=== PATIENT | female | born 1965 | race Caucasian/White ===

== ENCOUNTER 2017-12-20 08:51 | Day surgery (SDC) | payer OTHER ==
[2017-12-16 12:39] VITALS: BMI 22.1
[2017-12-20 09:28] VITALS: TEMP 98
[2017-12-20] MEDS: TOBRA 0.3%/DEXAMETH 0.1% OPHTHALMIC SUSP 2.5 ML BTL OD SCH ×2 (09:45→10:15)
[2017-12-20] MEDS ORDERED: MIDAZOLAM HCL 2 MG/2 ML SINGLE DOSE VIAL ONE (10:44)
[2017-12-20] MEDS ORDERED: ONDANSETRON 4 MG/2 ML VIAL IVPUSH PRN (10:51)
[2017-12-20] MEDS ORDERED: TETRACAINE 0.5% OPHTH SOLN 2 ML BOTTLE ONE (10:52)
[2017-12-20] MEDS ORDERED: LIDOCAINE HCL 2% JELLY 10 ML CARTRIDGE ONE ×2 (10:53→11:03)
[2017-12-20] MEDS ORDERED: POVIDONE-IODINE 5% OPHTHALMIC PREP 30 ML SOLUTION ONE (10:53)
[2017-12-20] MEDS ORDERED: ACETYLCHOLINE 1:100 INTRA-OCUL 20 MG/2 ML KIT ONE (10:53)
[2017-12-20] MEDS ORDERED: BSS (NA/CA/MG/K) BALANCED SALT SOLUTION OPHTH SOLN 15 ML BOTTLE ONE (11:10)
[2017-12-20] MEDS ORDERED: ACETAMINOPHEN 325 MG TABLET (FP) PO PRN (12:45)
[2017-12-20 13:24] VITALS: BP 110/60; PULSE 62
--- NOTE | 2017-12-20 13:44 | OP ---
DATE OF OPERATION: 12/20/2017 PREOPERATIVE DIAGNOSIS: Pterygium, right eye. POSTOPERATIVE DIAGNOSIS: Pterygium, right eye. PROCEDURE: Pterygium excision via conjunctival free autograft, right eye. SURGEON: Refugio Daigle MD SPECIAL DEPUTY SHERIFF: Karina Morrow MD ANESTHESIA: Topical with sedation. ESTIMATED BLOOD LOSS: Less than 1 mL. COMPLICATIONS: None. SPECIMENS: Pterygium, right eye. DESCRIPTION OF PROCEDURE: The patient was identified in the holding area. After all risks, benefits, and alternatives were explained to the patient, informed consent was obtained. The right eye was marked with a marking pen. The patient then entered the operating room on an eye stretcher. After a formal time-out was performed, topical tetracaine eye drops were instilled onto the right eye. The right eye was then prepped and draped in the usual sterile fashion. An eyelid speculum was placed beneath the eyelids of the right eye. Upon inspection, a nasal pterygium was found, and then, it was marked using a marking pen. Then, a double-arm 6-0 silk suture was used for traction at the superior and inferior limbus. The eye was then rotated temporally to expose the nasal pterygium, which was then avulsed from the cornea and conjunctiva and scleral bed using 0.12 forceps, crescent blade, and Nadir scissors. The conjunctiva was undermined, and all excess tenon was excised. Then, the host graft bed was measured and found to be 4 mm x 6 mm. Then, attention was turned to the superior conjunctiva, where a 4 x 6 mm conjunctival free autograft was then excised using Nadir scissors and blunt tissue forceps. The graft was then rotated limbus to limbus fashion to the host scleral bed. The donor graft was then sutured to the host conjunctiva using interrupted 7-0 Vicryl sutures. The graft was then noted to be securely in place and with no exposed tenon or sclera. The cornea was lubricated throughout the whole procedure using Viscoat. Then, also hemostasis was achieved throughout the procedure using cautery Wet-Field. Then, the traction sutures were removed from the eye, and topical antibiotic eye drops and ointment were then administered to the right eye. The right eye was patched and shielded. The patient tolerated the procedure well, left the operating room in stable condition to follow up in the eye clinic tomorrow morning at 9:00. REFUGIO DAIGLE M.D. ASTON/[id number]
== END 2017-12-20 13:28 | disposition home or self-care (01) ==
LOC: FASU 08:51
PROVIDERS: ATTEND Ophthalmology
PROC: 08RSX7Z Replacement of Right Conjunctiva with Autologous Tissue Substitute, External Approach (ICD-10-PCS; principal; 2017-12-20 11:28)
DX: H11.001 Unspecified pterygium of right eye (principal)